=== PATIENT | female | born 1945 | race Caucasian/White ===

== ENCOUNTER → 2019-01-30 13:07 | Outpatient (CLI) | payer MEDICARE, OTHER, SELFPAY ==
[2019-01-07 13:39] VITALS: BMI 29.4
--- NOTE | 2019-01-30 13:09 | ECHOD_ITS ---
Reason For Study: CAD/ASHD Procedure This was a 2D Doppler, Color Flow transthoracic echocardiogram. Exam performed in department. Left Ventricle Normal size and thickness. The estimated ejection fraction is 75 %. Stage 1 diastolic dysfunction. No regional wall motion abnormalities noted. Right Ventricle Normal size and thickness. Normal systolic function. Atria Normal left atrium. Normal right atrium. Normal atrial septum. Mitral Valve The mitral valve is structurally normal. No prolapse or stenosis seen. Trivial mitral valve insufficiency. Tricuspid Valve Normal tricuspid valve. Mild (1+) tricuspid valve insufficiency. Right ventricular systolic pressure estimated to be 33 mmHg. Aortic Valve Trisinus/trileaflet aortic valve. Pulmonic Valve Normal pulmonic valve. Great Vessels Normal aortic root. Normal arch. Moderate atherosclerosis of the aortic arch. Normal inferior vena cava. Inferior vena cava collapse with sniff. Pericardium/Pleural No pericardial effusion. MMode/2D Measurements & Calculations LVIDd: 3.9 cm IVSd: 1.1 cm Ao root diam: 2.4 cm LVIDs: 2.4 cm LVPWd: 0.90 cm RVDd: 3.3 cm FS: 38.4 % LAV(MOD-bp): 41.4 ml LVAd ap4: 20.6 cm2 SV(MOD-sp4): 35.2 ml LAV(MOD-bp) Indexed: 22.3 ml/m2 EDV(MOD-sp4): 48.6 ml LAV(MOD-sp2): 45.5 ml EDV(sp4-el): 51.3 ml LAV(MOD-sp4): 34.8 ml LVAs ap4: 9.3 cm2 ESV(MOD-sp4): 13.4 ml ESV(sp4-el): 13.6 ml EF(MOD-sp4): 72.4 % EF(sp4-el): 73.5 % SV(sp4-el): 37.7 ml LA A4 area: 14.8 cm2 LA dimension(2D): 4.1 cm RA A4 area: 10.2 cm2 Doppler Measurements & Calculations MV E max ricky: 69.0 cm/sec Lat Peak E' Ricky: 6.8 cm/sec Med Peak E' Ricky: 5.5 cm/sec MV A max ricky: 76.6 cm/sec E/E' lat: 10.1 E/E' med: 12.6 MV E/A: 0.90 Ao V2 max: 128.6 cm/sec LV V1 max: 114.7 cm/sec PA V2 max: 82.8 cm/sec Ao max P.6 mmHg LV V1 max P.3 mmHg Ao V2 mean: 94.3 cm/sec Ao mean P.9 mmHg Ao V2 VTI: 31.4 cm TR max ricky: 265.3 cm/sec TR max P.2 mmHg Interpretation Summary The estimated ejection fraction is 75 %. Stage 1 diastolic dysfunction. Trivial mitral valve insufficiency. Mild (1+) tricuspid valve insufficiency. Right ventricular systolic pressure estimated to be 33 mmHg. Moderate atherosclerosis of the aortic arch. There is no comparison study available. Ordering Physician: Zaire Ramírez Referring Physician: Pancho Garcia Performed By: Valarie Aviles, ARNOLD, RVT
== END ==
PROVIDERS: Family Provider Preventive Medicine Occupational Medicine; PCP Preventive Medicine Occupational Medicine; Referring Provider Internal Medicine Cardiovascular Disease; Visit Provider Internal Medicine Cardiovascular Disease
DX: I25.10 Atherosclerotic heart disease of native coronary artery without angina pectoris (principal)
CPT/HCPCS: 93306

== ENCOUNTER → 2019-02-03 09:31 | Outpatient (CLI) | payer MEDICARE, OTHER, SELFPAY ==
[2019-01-07 13:39] VITALS: BMI 29.4
--- NOTE | 2019-02-03 09:33 | STE_ITS ---
Reason For Study: PRE-OP, CAD Stress Results Protocol: Stress Echocardiogram Maximum Predicted HR: 145 bpm Target HR: 123 bpm % Maximum Predicted HR: 98 % DurationHeart Rate Stage (mm:ss) (bpm) BP Comment BASELINE 58 120/80 JACIEL PROTOCOL- STAGE 1 3:00 110 128/74 JACIEL PROTOCOL- STAGE 2 2:08 142 130/82SOB, NO CP RECOVERY 64 128/78 Stress Duration: 5:08 mm:ss Maximum Stress HR: 142 bpm Baseline Echocardiogram Findings The estimated ejection fraction is 65 %. Stress Echo Wall motion Data Resting WM Intermediate WM Stress WM Resting Wall Motion Wall Motion Stress No regional wall motion No regional wall motion abnormalities noted. abnormalities noted. EKG Data The baseline ECG displays normal sinus rhythm. The patient exercised according to the regular Jaciel protocol for a total duration of 5:08. The maximum heart rate attained was 142 beats per minute. This was 97% of maximum predicted heart rate. The patient exercised into stage 2 of the Jaciel protocol. At peak exercise, upsloping ST changes only were noted, which did not meet the criteria for ischemia. No clinical angina was noted. Interpretation Summary The estimated ejection fraction is 65 %. Normal, adequate, treadmill echocardiogram. Negative for ischemia by EKG and echocardiographic anterior. No anginal symptoms noted. Rare PVC noted. Appropriate blood pressure response to exercise. Below average exercise capacity for age. Test was terminated due to achieving target heart rate and dyspnea. Final LVEF is 75%. No complications. Ordering Physician: Zaire Ramírez MD Referring Physician: Zaire Ramírez Performed By: Sierra Paez RDCS
== END ==
PROVIDERS: Family Provider Preventive Medicine Occupational Medicine; PCP Preventive Medicine Occupational Medicine; Referring Provider Internal Medicine Cardiovascular Disease; Visit Provider Internal Medicine Cardiovascular Disease
DX: I25.10 Atherosclerotic heart disease of native coronary artery without angina pectoris (principal); E78.5 Hyperlipidemia, unspecified; Z95.5 Presence of coronary angioplasty implant and graft
CPT/HCPCS: 93017; 93350

== ENCOUNTER → 2019-02-20 11:21 | Outpatient (CLI) | payer MEDICARE, OTHER, SELFPAY ==
[2019-01-07 13:39] VITALS: BMI 29.4
[2019-02-20 12:07] LABS: AST(SGOT) 28 U/L (15-37); Alanine Aminotransfer ALT/SGPT 27 U/L (13-56); Albumin, Serum 3.8 g/dL (3.2-5.0); Alkaline Phosphatase 80 U/L (45-117); Cholesterol 214 mg/dL (200); Globulin 3.7 g/dL (2.2-4.2); High Density Lipoprotein 64 mg/dL; Protein, Total 7.5 g/dL (6.4-8.2); Triglycerides 74 mg/dL; Very Low Density Lipoprotein 15 mg/dL (5-40)
== END ==
PROVIDERS: Family Provider Preventive Medicine Occupational Medicine; PCP Preventive Medicine Occupational Medicine; Referring Provider Internal Medicine Cardiovascular Disease; Visit Provider Internal Medicine Cardiovascular Disease
DX: E78.5 Hyperlipidemia, unspecified (principal); I25.10 Atherosclerotic heart disease of native coronary artery without angina pectoris; Z95.5 Presence of coronary angioplasty implant and graft
CPT/HCPCS: 36415; 80061; 80076

== ENCOUNTER → 2019-07-23 11:21 | Outpatient (CLI) | payer MEDICARE, OTHER, SELFPAY ==
[2019-01-07 13:39] VITALS: BMI 29.4
[2019-07-23 13:13] LABS: AST(SGOT) 25 U/L (15-37); Alanine Aminotransfer ALT/SGPT 22 U/L (13-56); Albumin, Serum 3.7 g/dL (3.2-5.0); Alkaline Phosphatase 73 U/L (45-117); Bilirubin, Direct 0.15 mg/dL (0.00-0.30); Cholesterol 245 mg/dL (200); Globulin 3.5 g/dL (2.2-4.2); High Density Lipoprotein 62 mg/dL; Protein, Total 7.2 g/dL (6.4-8.2); Triglycerides 88 mg/dL; Very Low Density Lipoprotein 18 mg/dL (5-40)
== END ==
PROVIDERS: Family Provider Preventive Medicine Occupational Medicine; PCP Preventive Medicine Occupational Medicine; Referring Provider Nurse Practitioner Family; Visit Provider Nurse Practitioner Family
DX: E78.5 Hyperlipidemia, unspecified (principal)
CPT/HCPCS: 36415; 80061; 80076

== ENCOUNTER → 2019-09-09 | Outpatient (CLI) | payer MEDICARE, OTHER, SELFPAY ==
[2019-08-11 12:58] VITALS: BMI 28.6
[2019-09-09 13:33] LABS: AST(SGOT) 22 U/L (15-37); Alanine Aminotransfer ALT/SGPT 28 U/L (13-56); Albumin, Serum 3.5 g/dL (3.2-5.0); Alkaline Phosphatase 57 U/L (45-117); Bilirubin, Direct 0.15 mg/dL (0.00-0.30); Cholesterol 179 mg/dL (200); Globulin 3.2 g/dL (2.2-4.2); High Density Lipoprotein 55 mg/dL; Protein, Total 6.7 g/dL (6.4-8.2); Triglycerides 101 mg/dL; Very Low Density Lipoprotein 20 mg/dL (5-40)
== END | disposition home or self-care (01) ==
LOC: LAB 10:36
PROVIDERS: PCP Preventive Medicine Occupational Medicine; Referring Provider Nurse Practitioner Family; Visit Provider Nurse Practitioner Family
DX: E78.5 Hyperlipidemia, unspecified (principal)
CPT/HCPCS: 36415; 80061; 80076

== ENCOUNTER → 2020-02-17 | Outpatient (CLI) | payer MEDICARE, OTHER, SELFPAY ==
[2019-08-11 12:58] VITALS: BMI 28.6
[2020-02-17 11:00] LABS: AST(SGOT) 20 U/L (15-37); Alanine Aminotransfer ALT/SGPT 22 U/L (13-56); Albumin, Serum 3.5 g/dL (3.2-5.0); Alkaline Phosphatase 67 U/L (45-117); Cholesterol 184 mg/dL (200); Globulin 3.6 g/dL (2.2-4.2); High Density Lipoprotein 45 mg/dL; Protein, Total 7.1 g/dL (6.4-8.2); Triglycerides 154 mg/dL; Very Low Density Lipoprotein 31 mg/dL (5-40)
== END | disposition home or self-care (01) ==
PROVIDERS: PCP Preventive Medicine Occupational Medicine; Referring Provider Nurse Practitioner Family; Visit Provider Nurse Practitioner Family
DX: E78.00 Pure hypercholesterolemia, unspecified (principal); E78.5 Hyperlipidemia, unspecified
CPT/HCPCS: 36415; 80061; 80076

== ENCOUNTER → 2020-08-30 08:49 | Outpatient (CLI) | payer MEDICARE, OTHER, SELFPAY ==
[2020-02-23 10:40] VITALS: BMI 27.9
[2020-08-30 10:21] LABS: AST(SGOT) 21 U/L (15-37); Alanine Aminotransfer ALT/SGPT 20 U/L (13-56); Albumin, Serum 3.6 g/dL (3.2-5.0); Alkaline Phosphatase 65 U/L (45-117); Bilirubin, Direct 0.07 mg/dL (0.00-0.30); Cholesterol 216 mg/dL (200); Globulin 3.6 g/dL (2.2-4.2); High Density Lipoprotein 48 mg/dL; Protein, Total 7.2 g/dL (6.4-8.2); Triglycerides 164 mg/dL; Very Low Density Lipoprotein 33 mg/dL (5-40)
[2020-08-30 10:42] LABS: Thyroid Stim Hormone (TSH) 3.07 uIU/mL (0.358-3.74)
== END ==
PROVIDERS: PCP Preventive Medicine Occupational Medicine; Referring Provider Nurse Practitioner Family; Visit Provider Nurse Practitioner Family
DX: E78.00 Pure hypercholesterolemia, unspecified (principal); E78.5 Hyperlipidemia, unspecified; E03.9 Hypothyroidism, unspecified
CPT/HCPCS: 36415; 80061; 80076; 84443

== ENCOUNTER 2020-10-04 06:25 | Outpatient (RCR) | payer MEDICARE, OTHER, SELFPAY ==
[2020-09-01 13:08] VITALS: BMI 27.8
== END 2020-10-04 23:59 ==
LOC: IMMUN 06:25
PROVIDERS: PCP Preventive Medicine Occupational Medicine; Referring Provider Family Medicine; Visit Provider Family Medicine
DX: Z23 Encounter for immunization (principal)
CPT/HCPCS: 0011A; 0012A

== ENCOUNTER → 2021-02-28 14:11 | Outpatient (CLI) | payer MEDICARE, OTHER, SELFPAY ==
[2021-02-28 13:28] VITALS: BMI 27.8
[2021-02-28 15:36] LABS: T4 Free Direct 0.99 ng/dL (0.76-1.46); Thyroid Stim Hormone (TSH) 0.83 uIU/mL (0.358-3.74)
== END ==
PROVIDERS: PCP Preventive Medicine Occupational Medicine; Referring Provider Internal Medicine Endocrinology, Diabetes & Metabolism; Visit Provider Internal Medicine Endocrinology, Diabetes & Metabolism
DX: E03.9 Hypothyroidism, unspecified (principal)
CPT/HCPCS: 36415; 84439; 84443

== ENCOUNTER → 2021-03-14 09:23 | Outpatient (CLI) | payer MEDICARE, OTHER, SELFPAY ==
[2021-02-28 13:28] VITALS: BMI 27.8
[2021-03-14 12:19] LABS: AST(SGOT) 25 U/L (15-37); Alanine Aminotransfer ALT/SGPT 31 U/L (13-56); Albumin, Serum 3.5 g/dL (3.2-5.0); Alkaline Phosphatase 55 U/L (45-117); Cholesterol 144 mg/dL (200); Globulin 3.3 g/dL (2.2-4.2); High Density Lipoprotein 52 mg/dL; Protein, Total 6.8 g/dL (6.4-8.2); Triglycerides 102 mg/dL; Very Low Density Lipoprotein 20 mg/dL (5-40)
== END ==
PROVIDERS: PCP Preventive Medicine Occupational Medicine; Referring Provider Nurse Practitioner Family; Visit Provider Nurse Practitioner Family
DX: E78.00 Pure hypercholesterolemia, unspecified (principal); E78.5 Hyperlipidemia, unspecified
CPT/HCPCS: 36415; 80061; 80076

== ENCOUNTER → 2021-05-20 09:54 | Outpatient (CLI) | payer MEDICARE, OTHER, SELFPAY | PROVIDERS: PCP Preventive Medicine Occupational Medicine; Referring Provider Otolaryngology Otolaryngology/Facial Plastic Surgery; Visit Provider Otolaryngology Otolaryngology/Facial Plastic Surgery | DX: U07.1 COVID-19 (principal) | CPT/HCPCS: 87635; C9803; U0005; U0003 ==

== ENCOUNTER → 2021-06-13 16:20 | Outpatient (CLI) | payer MEDICARE, OTHER, SELFPAY ==
--- NOTE | 2021-06-13 16:25 | RAD_ITS ---
STUDY: X-RAY CHEST REASON FOR EXAM: Female, 75 years old. Chest heaviness TECHNIQUE: PA and lateral views of the chest. COMPARISON: None. FINDINGS: Focal opacity in the upper right lung consistent with right upper lobe pneumonia, atelectasis, or mass. Correlation prior chest x-rays or chest CT is recommended for further evaluation. There is no demonstrated pleural abnormality. Normal size heart. Normal mediastinum and ari. Normal visualized pulmonary arteries. Normal visualized aortic arch and descending thoracic aorta. There is a levoscoliosis of the thoracic spine. Normal visualized ribs, clavicles, and shoulders. There is no demonstrated abnormality of the visualized soft tissue structures of the upper abdomen. RAD/Chest PA and Lateral IMPRESSION: Right upper lobe pneumonia, atelectasis, or mass. Clinical correlation and CT would be useful. Electronically Signed: Slava Mckeon MD at 8:14 EST Tel , Service support ,
[2021-06-13 17:09] LABS: Absolute Lymphocyte Count 2.69 X10^3/uL (0.83-4.51); Absolute Neutrophil Count 3.1 X10^3/uL (2.0-7.7); Basophil# 0.06 X10^3/uL; Basophil% 0.9 % (0-1); Eosinophil# 0.23 X10^3/uL; Eosinophils% 3.4 % (0-5); Hematocrit 40.8 % (37-47); Lymphocyte # 2.69 X10^3/ul (0.83-4.51); Lymphocyte % 39.3 % (19-41); Mean Corp Hgb Conc 31.9 g/dL (32-36); Mean Corpuscular Hgb 29.5 pg (27.0-32.0); Mean Corpuscular Volume 92.5 fL (81-99); Mean Platelet Vol. 12.7 fl (6.2-12.0); Monocyte# 0.73 X10^3/uL; Monocyte% 10.7 % (0-10); NRBC Flagged by Analyzer 0 % (0-5); Neutrophil # 3.13 X10^3/uL (2.7-7.7); Neutrophil % 45.6 % (47-70); Platelet Count 257 K/mm3 (150-450); RBC Distribution Width CV 13.5 % (11.6-14.6); Red Blood Count 4.41 M/mm3 (4.2-5.4); White Blood Count 6.9 K/mm3 (4.4-11.0)
[2021-06-13 17:26] LABS: Anion Gap 4 (5-15); BUN 12 mg/dL (7-18); Calcium,Total 9.3 mg/dL (8.5-10.1); Chloride 104 mmol/L (98-107); Creatinine, Serum 1.09 mg/dL (0.55-1.02); EST Glomerular Filtration Rate 52 mL/min (>60); Est Glom Filt Rate - Afr Amer 63 mL/min (>60); Glucose 97 mg/dL (74-106); Potassium 3.7 mmol/L (3.5-5.1); Sodium Level 139 mmol/L (136-145)
== END ==
PROVIDERS: PCP Preventive Medicine Occupational Medicine; Referring Provider Nurse Practitioner Gerontology; Visit Provider Nurse Practitioner Gerontology
DX: R07.89 Other chest pain (principal); R42 Dizziness and giddiness; R53.82 Chronic fatigue, unspecified
CPT/HCPCS: 36415; 71046; 80048; 85025

== ENCOUNTER → 2021-06-27 06:38 | Outpatient (CLI) | payer MEDICARE, OTHER, SELFPAY ==
--- NOTE | 2021-06-27 06:40 | CT_ITS ---
STUDY: CT CHEST WITH CONTRAST REASON FOR EXAM: Female, 75 years old. Abnormal chest x ray -- right upper lobe pneumonia, atelectasis, or mass RADIATION DOSAGE (If Supplied By Facility): CTDIvol = ( 11.52 ) mGy, DLP = ( 340.35 ) mGycm TECHNIQUE: Transaxial imaging was performed following intravenous administration of IV 100mL Isovue-300. Multiplanar coronal and sagittal images were reformatted. Individualized dose optimization techniques were used for this CT. COMPARISON: Chest x-ray 06/13/2021 FINDINGS: Lungs are hyperexpanded with centrilobular emphysema predominantly involving the upper lung zones. A large irregular area of peribronchial groundglass opacity involves the right upper lobe, measuring 3.4 x 4.4 cm, correlating abnormality on previous x-ray. Solid nodular component along the inferior posterior margin measures 6 x 9 mm on image 46 of series 4 Normal heart and pericardium. There are calcifications of the coronary arteries. Normal mediastinum. Normal hilar regions. Normal enhanced pulmonary arteries. There is atherosclerotic calcification of the aortic arch with tortuosity and elongation of the aortic arch and descending thoracic aorta. There are multi-level degenerative changes of the thoracic spine. There is no demonstrated abnormality of the visualized upper abdomen. CT/Chest WITH Contrast IMPRESSION: Solid (9 mm) and groundglass (dominant) opacity (44 mm) nodule in the the right upper lobe. Fleischner Society Guidelines (MacMahon, et al. Radiology 2017; 284(1):228-43) recommend PET/CT, biopsy or resection. Electronically Signed: Randy Robles MD ([place]) at 16:37 EST , Service support ,
== END ==
PROVIDERS: PCP Preventive Medicine Occupational Medicine; Referring Provider Nurse Practitioner Gerontology; Visit Provider Nurse Practitioner Gerontology
DX: R93.89 Abnormal findings on diagnostic imaging of other specified body structures (principal)
CPT/HCPCS: 71260; Q9967

== ENCOUNTER → 2021-07-05 11:04 | Outpatient (CLI) | payer MEDICARE, OTHER, SELFPAY ==
--- NOTE | 2021-07-05 11:06 | ECHOD_ITS ---
Reason For Study: DYSPNEA Procedure This was a 2D Doppler, Color Flow transthoracic echocardiogram. The exam was of adequate technical quality. Exam performed in department. Left Ventricle Normal LV size. Left ventricular systolic function is normal. The estimated ejection fraction is 65 %. No regional wall motion abnormalities noted. Right Ventricle Normal RV size. Normal systolic function. Atria The left atrium is mildly enlarged. Normal right atrium. No doppler evidence for ASD. Mitral Valve There is no mitral annular calcification. Normal mitral valve. Mild-Moderate (1-2+) mitral valve insufficiency. Tricuspid Valve Normal tricuspid valve. Mild to moderate (1-2+) tricuspid valve insufficiency. Right ventricular systolic pressure estimated to be 35 mmHg. Aortic Valve Trisinus/trileaflet aortic valve. Mild (1+) aortic valve insufficiency. Pulmonic Valve The pulmonic valve is not well visualized. Trivial pulmonic valve insufficiency identified. Great Vessels Normal sized aortic root. Pericardium/Pleural No pericardial effusion. MMode/2D Measurements & Calculations LVIDd: 3.9 cm IVSd: 0.95 cm Ao root diam: 2.5 cm LVIDs: 2.5 cm LVPWd: 0.91 cm RVDd: 4.0 cm FS: 36.7 % LAV(MOD-bp): 48.7 ml LVAd ap4: 21.3 cm2 LVAd ap2: 20.1 cm2 LAV(MOD-bp) Indexed: 26.4 ml/m2 LVLd ap4: 7.0 cm LVLd ap2: 6.8 cm LAV(MOD-sp2): 48.0 ml EDV(MOD-sp4): 52.5 ml EDV(MOD-sp2): 50.3 ml LAV(MOD-sp4): 47.3 ml EDV(sp4-el): 55.0 ml EDV(sp2-el): 50.4 ml LVAs ap4: 11.3 cm2 LVAs ap2: 11.7 cm2 LVLs ap4: 5.8 cm LVLs ap2: 6.0 cm ESV(MOD-sp4): 18.8 ml ESV(MOD-sp2): 20.2 ml ESV(sp4-el): 18.7 ml ESV(sp2-el): 19.6 ml EF(MOD-sp4): 64.3 % EF(MOD-sp2): 59.8 % EF(sp4-el): 65.9 % SV(MOD-sp4): 33.7 ml SV(MOD-sp2): 30.1 ml SV(sp4-el): 36.2 ml LA dimension(2D): 4.2 cm LA A4 area: 18.6 cm2 RA A4 area: 14.3 cm2 Doppler Measurements & Calculations MV E max ricky: 107.9 cm/sec Lat Peak E' Ricky: 6.8 cm/sec Med Peak E' Ricky: 6.4 cm/sec MV A max ricky: 26.0 cm/sec E/E' lat: 15.8 E/E' med: 16.9 MV E/A: 4.2 Ao V2 max: 111.1 cm/sec AI max ricky: 363.1 cm/sec LV V1 max: 91.8 cm/sec Ao max P.9 mmHg AI max P.8 mmHg LV V1 max P.4 mmHg Ao V2 mean: 75.8 cm/sec AI dec slope: 129.6 cm/sec2 LV V1 mean P.0 mmHg Ao mean P.5 mmHg AI P1/2t: 820.6 msec LV V1 mean: 67.6 cm/sec Ao V2 VTI: 29.5 cm LV V1 VTI: 25.3 cm PA V2 max: 66.3 cm/sec TR max ricky: 275.0 cm/sec TR max P.8 mmHg ECHO/Echo Complete Interpretation Summary Left ventricular systolic function is normal. The estimated ejection fraction is 65 %. The left atrium is mildly enlarged. Mild-Moderate (1-2+) mitral valve insufficiency. Mild to moderate (1-2+) tricuspid valve insufficiency. Mild (1+) aortic valve insufficiency. Trivial pulmonic valve insufficiency identified. Right ventricular systolic pressure estimated to be 35 mmHg. Transmitral diastolic flow velocities suggest diastolic dysfunction (pseudonorm al pattern). Ordering Physician: Conchita Bermudez Referring Physician: YELENA MAHONEY Performed By: Thu Goff, ARNOLD, RVT
== END ==
PROVIDERS: PCP Preventive Medicine Occupational Medicine; Referring Provider Nurse Practitioner Gerontology; Visit Provider Nurse Practitioner Gerontology
DX: I34.1 Nonrheumatic mitral (valve) prolapse (principal); R06.00 Dyspnea, unspecified
CPT/HCPCS: 93306

== ENCOUNTER → 2021-07-12 06:58 | Outpatient (CLI) | payer MEDICARE, OTHER, SELFPAY ==
--- NOTE | 2021-07-12 13:45 | PFTCOMP_ITS ---
COMPLETE PULMONARY FUNCTION TEST INTERPRETATION Brief HPI: Patient is a 75 year old female, currently under the care of myself, who presents to [facility] for complete pulmonary function tests secondary to diagnosis of dyspnea. Respiratory therapist reports good effort and reproducible results. Interpretation: Forced expiration spirometry shows a mild large airways obstructive ventilatory defect with an FEV1 of 81% predicted. There is a significant bronchodilator response in FVC by strict ATS criteria. Spirograms are of good quality and plateau slowly, indicating slowly emptying areas of the lungs. The respiratory flow volume loop shows decreased expiratory flow rates at all lung volumes consistent with airway obstruction. Lung volumes by body plethysmography show a normal total lung capacity at 4.43 L, 89% predicted. All other lung volumes are within normal limits. Diffusion capacity by carbon monoxide is decreased at 48% predicted. The airway resistance is elevated. No previous pulmonary function tests were available for review. Impression: Partial reversible mild large airways obstructive ventilatory defect with a disproportionate reduction in diffusing capacity
== END ==
PROVIDERS: PCP Preventive Medicine Occupational Medicine; Referring Provider Internal Medicine Critical Care Medicine; Visit Provider Internal Medicine Critical Care Medicine
DX: R06.00 Dyspnea, unspecified (principal); R93.89 Abnormal findings on diagnostic imaging of other specified body structures
CPT/HCPCS: 94060; 94726; 94729

== ENCOUNTER → 2021-07-14 13:41 | Outpatient (CLI) | payer MEDICARE, OTHER, SELFPAY ==
[2021-07-14 13:45] VITALS: PULSE 74; PULSE 82; PULSE 83; PULSE 88; PULSE 91; O2SAT 95; O2SAT 96
--- NOTE | 2021-07-14 15:07 | PCM.PSN.6M ---
PSN 6 Minute Walk Test 6 Minute Walk Test 6 Minute Walk Test: 6 Minute Walk Test PSN:6-Minute Walk Test Start: 07/14/21 13:59 Freq: Status: Active Protocol: RESP.6MINW Document 07/14/21 13:45 EW (Rec: 07/14/21 14:05 EW [id number]) 6 Minute Walk Test Date Performed 07/14/21 Time Performed 13:45 Height 5 ft 6 in Weight: 77.111 kg Weight in Pounds 170.[address]: Ez Braun Pre-test Oxygen Delivery Method Room Air Pulse Ox (%) 95 Pulse Rate (60-100 beats/min) 74 Dyspnea Ann Scale (0-10) 1 Exertion Ann Scale (6-20) 0 1st minute Oxygen Delivery Method Room Air Pulse Ox (%) 96 Pulse Rate (60-100 beats/min) 82 2nd minute Oxygen Delivery Method Room Air Pulse Ox (%) 95 Pulse Rate (60-100 beats/min) 88 3rd minute Oxygen Delivery Method Room Air Pulse Ox (%) 95 Pulse Rate (60-100 beats/min) 91 4th minute Oxygen Delivery Method Room Air Pulse Ox (%) 95 Pulse Rate (60-100 beats/min) 88 5th minute Pulse Ox (%) 96 Pulse Rate (60-100 beats/min) 88 6th minute Pulse Ox (%) 96 Pulse Rate (60-100 beats/min) 88 Post-test Oxygen Delivery Method Room Air Pulse Ox (%) 95 Pulse Rate (60-100 beats/min) 83 Dyspnea Ann Scale (0-10) 2 Exertion Ann Scale (6-20) 8 Full Laps Walked 17 Partial Lap, Number of Tiles Walked 0 Total Distance Walked (ft) 1003 Interpretation Interpretation: The patient was able to ambulate 1003 feet over the course of 6 minutes on room air with the assistance of a cane and no breaks. The patient experienced no significant desaturation or tachycardia during testing. These findings are consistent with a musculoskeletal limitation in exercise tolerance. Recommendations Recommendations: No supplemental oxygen is indicated at this time.
== END ==
PROVIDERS: PCP Preventive Medicine Occupational Medicine; Referring Provider Internal Medicine Critical Care Medicine; Visit Provider Internal Medicine Critical Care Medicine
DX: R06.00 Dyspnea, unspecified (principal); R93.89 Abnormal findings on diagnostic imaging of other specified body structures
CPT/HCPCS: 94618

== ENCOUNTER 2021-09-14 13:45 | Outpatient (CLI) | payer MEDICARE, OTHER, SELFPAY ==
--- NOTE | 2021-09-14 13:50 | CT_ITS ---
STUDY: CT CHEST WITHOUT CONTRAST REASON FOR EXAM: Female, 75 years old. RUL GGO. History of prior Covid. RADIATION DOSAGE (If Supplied By Facility): CTDIvol = ( 8.13 ) mGy, DLP = ( 285.00 ) mGycm TECHNIQUE: Transaxial imaging was performed without the administration of intravenous contrast material. Individualized dose optimization techniques were used for this CT. COMPARISON: Comparison is made with prior study dated 06/27/2021. FINDINGS: There are emphysematous changes of the lungs with emphysematous blebs. Hyperinflation. Once again, there is a narrowing of the peribronchial groundglass opacity in the right upper lobe. This is unchanged. Stable 5 mm nodule along its peripheral posterior aspect. There is no demonstrated pleural abnormality. There are calcifications of the coronary arteries. There are multiple small lymph nodes within the mediastinum, which are normal in size and morphology most compatible with reactive lymph hyperplasia. Normal hilar regions. Normal unenhanced pulmonary arteries. There is atherosclerotic calcification of the aortic arch with tortuosity and elongation of the aortic arch and descending thoracic aorta. There are multi-level degenerative changes of the thoracic spine. Small gallstones are seen along the deep ended portion of the gallbladder lumen. CT/Chest without Contrast IMPRESSION: Stable focal area of groundglass appearance in the posterior aspect of the right upper lobe with persistent tiny nodular density along its inferior margin. Electronically Signed: Horacio Limon MD at 15:14 EST ,
== END 2021-09-14 23:59 | disposition home or self-care (01) ==
LOC: CT 13:49
PROVIDERS: PCP Preventive Medicine Occupational Medicine; Referring Provider Internal Medicine Critical Care Medicine; Visit Provider Internal Medicine Critical Care Medicine
DX: R93.89 Abnormal findings on diagnostic imaging of other specified body structures (principal)
CPT/HCPCS: 71250

== ENCOUNTER 2021-09-29 11:30 | Outpatient (CLI) | payer MEDICARE, OTHER, SELFPAY ==
[2021-09-29 13:50] LABS: AST(SGOT) 21 U/L (15-37); Alanine Aminotransfer ALT/SGPT 21 U/L (13-56); Albumin, Serum 3.7 g/dL (3.2-5.0); Alkaline Phosphatase 61 U/L (45-117); Bilirubin, Direct 0.11 mg/dL (0.00-0.30); Cholesterol 166 mg/dL (200); Globulin 3.5 g/dL (2.2-4.2); High Density Lipoprotein 57 mg/dL; Protein, Total 7.2 g/dL (6.4-8.2); Triglycerides 125 mg/dL; Very Low Density Lipoprotein 25 mg/dL (5-40)
[2021-09-29 13:56] LABS: T4 Free Direct 1.06 ng/dL (0.76-1.46); Thyroid Stim Hormone (TSH) 1.28 uIU/mL (0.358-3.74)
== END 2021-09-29 23:59 | disposition home or self-care (01) ==
LOC: LAB 11:32
PROVIDERS: Nurse Practitioner Family; PCP Preventive Medicine Occupational Medicine; Visit Provider Nurse Practitioner Gerontology
DX: E78.5 Hyperlipidemia, unspecified (principal); E03.9 Hypothyroidism, unspecified
CPT/HCPCS: 36415; 80061; 80076; 84439; 84443

== ENCOUNTER 2021-10-31 20:00 | Outpatient (CLI) | payer MEDICARE, OTHER, SELFPAY | END 2021-10-31 23:59 | disposition home or self-care (01) | PROVIDERS: PCP Preventive Medicine Occupational Medicine; Visit Provider Internal Medicine Critical Care Medicine | DX: G47.33 Obstructive sleep apnea (adult) (pediatric) (principal) | CPT/HCPCS: 95811 ==

== ENCOUNTER → 2022-02-11 | Outpatient (CLI) | payer MEDICARE, OTHER, SELFPAY ==
--- NOTE | 2022-02-11 08:45 | CT_ITS ---
STUDY: CT Chest W/O Contrast Injection 02/11/2022 7:11 PM REASON FOR EXAM: Female, 76 years old. 6 month f/u GGO groundglass opacity Individualized dose optimization techniques were used for this CT. TECHNIQUE: Transaxial imaging was performed withoutIV contrast material. COMPARISON: Sep 14 2021 1:55pm . FINDINGS: There are degenerative changes of the shoulders. There is no pneumothorax. There is no demonstrated pleural abnormality. There are scattered blebs and bullae. This can be seen in pulmonary emphysema. Right upper lobe groundglass opacity measures 49 x 33 mm. Series 2 image 40. Stable 15 x 5 mm nodule inferior to the ground glass region. There are calcifications of the coronary arteries. Normal mediastinum. Normal hilar regions. Normal pulmonary arteries. There is atherosclerotic calcification of the aortic arch with tortuosity and elongation of the aortic arch and descending thoracic aorta. There are multi-level degenerative changes of the thoracic spine. There are no acute findings of the upper abdomen. CT/Chest without Contrast IMPRESSION: Right upper lobe nodule and groundglass area is stable. ACR Lung CT Screening Reporting T Data System (Lung-RADS) score: 2 - Benign Appearance or Behavior. Recommend continued annual screening with low-dose CT (LDCT) in 12 months. Electronically Signed: Monty Amaro MD at 19:15 EDT ,
== END | disposition home or self-care (01) ==
PROVIDERS: PCP Preventive Medicine Occupational Medicine; Referring Provider Internal Medicine Critical Care Medicine; Visit Provider Internal Medicine Critical Care Medicine
DX: I25.10 Atherosclerotic heart disease of native coronary artery without angina pectoris (principal); I70.0 Atherosclerosis of aorta; M19.011 Primary osteoarthritis, right shoulder; R91.1 Solitary pulmonary nodule; M19.012 Primary osteoarthritis, left shoulder; R93.89 Abnormal findings on diagnostic imaging of other specified body structures
CPT/HCPCS: 71250

== ENCOUNTER → 2022-06-26 | Outpatient (CLI) | payer MEDICARE, OTHER, SELFPAY ==
[2022-06-26 12:37] LABS: AST(SGOT) 18 U/L (15-37); Alanine Aminotransfer ALT/SGPT 24 U/L (13-56); Albumin, Serum 3.6 g/dL (3.2-5.0); Alkaline Phosphatase 70 U/L (45-117); Anion Gap 7 (5-15); BUN 20 mg/dL (7-18); BUN/Creat Ratio 18.9 RATIO (10-20); Bilirubin, Direct 0.13 mg/dL (0.00-0.30); Calcium,Total 8.7 mg/dL (8.5-10.1); Chloride 104 mmol/L (98-107); Cholesterol 170 mg/dL (200); Creatinine, Serum 1.06 mg/dL (0.55-1.02); EST Glomerular Filtration Rate 53 mL/min (>60); Est Glom Filt Rate - Afr Amer 64 mL/min (>60); Globulin 3.2 g/dL (2.2-4.2); Glucose 100 mg/dL (74-106); High Density Lipoprotein 59 mg/dL; Potassium 3.8 mmol/L (3.5-5.1); Protein, Total 6.8 g/dL (6.4-8.2); Sodium Level 138 mmol/L (136-145); Thyroid Stim Hormone (TSH) 1.31 uIU/mL (0.358-3.74); Triglycerides 111 mg/dL; Very Low Density Lipoprotein 22 mg/dL (5-40)
== END | disposition home or self-care (01) ==
LOC: LAB 11:36
PROVIDERS: PCP Preventive Medicine Occupational Medicine; Referring Provider Internal Medicine Cardiovascular Disease; Visit Provider Internal Medicine Cardiovascular Disease
DX: I10 Essential (primary) hypertension (principal); E78.00 Pure hypercholesterolemia, unspecified
CPT/HCPCS: 36415; 80048; 80061; 80076; 84443

== ENCOUNTER 2022-07-10 11:00 | Outpatient (RCR) | payer MEDICARE, OTHER, SELFPAY ==
--- NOTE | 2022-05-24 13:20 | HP.PTEVAL_ITS ---
Patient's Visit Information CINDI HAAS is a 76 year old F referred to Physical Therapy by Dr. Robles Lopez MD with a diagnosis of Right Hip OA. Date of Evaluation: 05/24/22 Physical Therapist: Jade Bettencourt DPT - Visit Plan Frequency: 2x /Week Duration: 4 Weeks Plan: Aquatic PT- focus on LE and core strength/stabilization - Subjective Patient reports that she has an issue with her right hip. She has a spur and she had an injection 2 weeks ago- Cortisone. She is able to do things that she wasn't able to do. She is very happy with the injection but wants to have water therapy to help get stronger. She has had back issues for about 40 years- 2 back surgeries- last one was in 1974- they dissolved the disc. She thinks thats what has continued her problems- all the weight is now on L3. She has been told that her back is a mess- she has gone through injections and ablasions and it might have dulled but it has not been painfree. About a year ago she went to her PCP and they took x-rays and showed OA in the joint- it continued to get worse. She feels that her hip is almost back to 100%. She can stand and put her pajamas on without holding on. No pain since the injection. Prior to the injection the pain was located on the side of the hip- No radiating pain- does have pain that goes to the center of the hip- but she feels that it comes from her back. Described the pain as sharp- No N/T. No loss or change in bowel or bladder. Sleep: not disturbed- back mostly she has a CPAP machine. She is more sedentary- she does her own cooking and cleaning. PMHx: No change since 04/24/22 Construction Mgr visit. - Objective Posture: FH, RS- can correct but does not maintain. Gait: no deviation noted- good arm swing and trunk rotation. Stairs: asc/desc 8 recip with 1 HR. HR/TR: able with UE A. SLS: 3 sec then LOB. ROM: WFL in all planes. Sensation: diminished to gross touch right>left. Strength: Core: fair minus, Hip: 4+/5 throughout, Knee: 5/5, Ankle: 5/5. Flex: HS: mild Gastroc: mild. Sit to Stand: no UE A - Special Tests R Hip BONILLA - Intraarticular Pathology: Negative R Hip FADDIR - Labrum: Positive R Hip Trendelenberg - Glut Medius: Negative R Hip Jeffry - IT Band: Negative - Balance/Special Test Scores Lower Extremity Functional Score: 71 - Goals Goal 1:: Patient will be I with HEP and progression Goal Time Frame: 4-6 Weeks Goal 2:: Patient will maintain proper posture t/o tx session to demo increased core s/s Goal Time Frame: 4-6 Weeks Goal 3:: Patient will report 80% improvement Goal Time Frame: 4-6 Weeks - Rehabilitation Potential Physical Therapy Diagnosis: Patient presents with hypomobility- she has decre ased LE and core strength/stabilization and muscular endurance- leading to increased pain with ADL's. Rehabilitation Potential: Good - Anticipated Interventions Patient/Client Instruction: Educate patient on: Benefits of Fitness Program Therapeutic Exercise to Include: Strength training, Endurance training, Balance training, Coordination, Agility training, Body mechanics, Postural training, Flexibilty training, Gait and locomotor training, Neuromotor development, In an aquatic setting, Dynamic Lumbar Stabilization, Scapular Strength/Stabilization For the Purpose of:: To improve muscle performance and motor function Thank you for the opportunity to evaluate your patient. For Medicare and Medicare HMO plans, please review the plan of care and approve it. It will need to be FAXED BACK to us at [phone] for Medicare purposes. For Medicare only, by signing this I certify the plan of care. Please let me know if there are questions or concerns regarding this plan of care. Physician Signature: ___Date:
--- NOTE | 2022-07-10 11:27 | HP.PTDCSUM ---
It has been my pleasure to treat CINDI HAAS referred by Dr. Robles Lopez MD, with the diagnosis of Right Hip OA for a total of 11 visit(s). Discharge Date: Please see the following information for a summary of their discharge status. Subjective: Patient reports that she is not hurting as much as she was- she is moving around more at home and doing more stuff. If anything the pool therapy has helped her to get rid of water fear. She still has some pain. She would like to be more disciplined and do the exercises at home. She feels confident with the exercise program Lumbar spine Pain Intensity (Out of 10): 1 RLE Pain Intensity (Out of 10): 1 % Improvement: 75 Objective/Function: Posture: Fair. Gait: no deviation noted- good arm swing and trunk rotation. Stairs: asc/desc 8 recip with 1 HR. HR/TR: able with UE A. SLS: 5 sec then LOB. ROM: WFL in all planes. Sensation: diminished to gross touch right>left. Strength: Core: fair minus, Hip: 4+/5 throughout, Knee: 5/5, Ankle: 5/5. Flex: HS: mild Gastroc: mild. Sit to Stand: no UE A. - Special Tests. R Hip BONILLA - Intraarticular Pathology: Negative. R Hip FADDIR - Labrum: Positive. R Hip Trendelenberg - Glut Medius: Negative. R Hip Jeffry - IT Band: Negative Goal 1:: Patient will be I with HEP and progression Goal 2:: Patient will maintain proper posture t/o tx session to demo increased core s/s Goal 3:: Patient will report 80% improvement Plan: 07/10/22: Discharge to I HEP- encouraged to call if questions or concerns. Aquatic PT- focus on LE and core strength/stabilization If there are questions or concerns regarding this patient's physical therapy, please feel free to call me at [phone]. Thank you for the referral of this patient. Sincerely, Jade Bettencourt, DPT Balance/Gait/Functional tests - Balance/Special Test Scores Lower Extremity Functional Score: 54 Tug Test: <10 sec.=free mobile
== END 2022-07-10 12:25 | disposition home or self-care (01) ==
LOC: PT 11:00
PROVIDERS: PCP Preventive Medicine Occupational Medicine; Referring Provider Specialist; Visit Provider Specialist
DX: M16.11 Unilateral primary osteoarthritis, right hip (principal); M70.61 Trochanteric bursitis, right hip
CPT/HCPCS: 97113; 97162; 97164

== ENCOUNTER → 2022-10-31 | Outpatient (CLI) | payer MEDICARE, OTHER, SELFPAY ==
--- NOTE | 2022-10-31 12:56 | CT_ITS ---
ACR Level 3 findings have been noted. An addendum which confirms receipt of the report will follow. EXAM: CT CHEST WITHOUT INTRAVENOUS CONTRAST CLINICAL INDICATION: 49 x 33 mm groundglass nodule and patient also has a stable 15 x 5 mm. TECHNIQUE: Helically acquired images were obtained of the chest without intravenous contrast. This CT exam was performed using one or more of the following dose reduction techniques: automated exposure control, adjustment of the mA and/or kV according to patient size, and/or use of iterative reconstruction technique. This report was created using [employer] report [employer] technology. RADIATION DOSE: CTDIvol = 12.68 mGy, DLP = 456.18 mGy-cm. COMPARISON: 06/27/2021, 09/14/2021, and 02/21/2022. FINDINGS: LUNGS AND PLEURAL SPACES: Over the course of the 4 examinations there appears to be some progressive increased size of the right upper lobe nodule that is inferior to the area of groundglass opacity. On the examination dated 06/27/2021 it measured approximately 1.3 x 0.4 cm. On the examination dated 09/14/2021 and measured approximately 1.4 x 0.5 cm. On the examination dated 02/11/2022 and measure approximately 1.7 x 0.6 cm. On the current examination measures approximately 2.1 x 0.7 cm. There is mild spiculation around this nodule. Emphysema. No pleural effusion or thickening. No pneumothorax. No change in the ill-defined groundglass opacity right upper lobe that measures about 3.8 x 3 cm. HEART: Coronary artery calcifications. Heart size is normal. No pericardial effusion. MEDIASTINUM: Unremarkable. No mediastinal or hilar adenopathy. Esophagus is unremarkable. No hiatal hernia. THYROID: Unremarkable. No thyroid lesions. BONES/JOINTS: Unremarkable. No suspicious lytic or blastic abnormality. VASCULATURE: See above. GALLBLADDER AND BILE DUCTS: Cholelithiasis. CT/Chest without Contrast IMPRESSION: 1. No change in the ill-defined groundglass opacity right upper lobe that measures about 3.8 x 3 cm. 2. Emphysema. 3. Enlarging solid nodule in the right upper lobe adjacent to the area of groundglass opacification. There is some associated spiculation. 4. No change in the area of groundglass opacification in the right upper lobe. 5. Cholelithiasis. 6. Coronary artery disease. RECOMMENDATIONS: Enlarging solid nodule in the right upper lobe adjacent to the area of groundglass opacification with associated spiculation. ACR Lung CT Screening Reporting T Data System (Lung-RADS) score: 4X - Very Suspicious. There are additional features or imaging findings that increase the suspicion of malignancy. Consider PET/CT and/or tissue sampling depending on the probability of malignancy and comorbidities. PET/CT may be used when there is a >=8 mm solid component. Electronically Signed: Camacho Martin MD at 6:40 EDT ,
== END | disposition home or self-care (01) ==
LOC: CT 12:55
PROVIDERS: PCP Preventive Medicine Occupational Medicine; Visit Provider Internal Medicine Critical Care Medicine
DX: R93.89 Abnormal findings on diagnostic imaging of other specified body structures (principal)
CPT/HCPCS: 71250

== ENCOUNTER → 2022-11-14 | Outpatient (CLI) | payer MEDICARE, OTHER, SELFPAY ==
--- NOTE | 2022-11-14 11:30 | PET_ITS ---
EXAMINATION: FDG PET/CT INDICATIONS: 76-year-old female with a history of pulmonary nodularity. COMPARISON EXAMINATION: CT of the chest report dated 10/31/2022. INDEX LESION SIZE SUV INTERPRETATION Right upper lung field, right upper lobe, ground glass density ? 1.3 max Quantitative criteria for viable neoplasm are not fulfilled, sequential radiologic investigation recommended ? Right lower lung field, ground glass density ? 1.3 max Quantitative criteria for viable neoplasm are not fulfilled, interim metabolic assessment recommended Following the intravenous administration of 12.8 mCi of F-18 deoxyglucose via the right antecubital fossa, multiplanar image acquisitions of the head, neck, chest, abdomen and pelvis to the level of the midthigh, obtained at one-hour post radiopharmaceutical administration contemporaneously interpreted with the current CT of the chest dated 11/14/[address] of the chest study dated 10/31/2022 via coregistration reveal: SERUM GLUCOSE LEVEL: 99 mg/dL HEIGHT: 65 inches WEIGHT: 180 pounds FINDINGS: HEAD/NECK: There is no evidence of abnormal increased glucose metabolism in the pharyngeal mucosal space, parapharyngeal space, oropharynx, bilateral-lateral and anterior neck, hypopharynx and distribution of the larynx. The visualized portion of the cerebral cortical-subcortical structures demonstrate symmetric and preserved glucose metabolism. CHEST: Facilitated radiopharmaceutical concentration is noted in the right upper mid lung field, corresponding to a ground glass density defined on CT of the chest dated 10/31/2022. The calculated standard uptake value is 1.3. Quantitative criteria for viable neoplasm are not fulfilled. There is no quantitative scintigraphic evidence of abnormal increased glucose metabolism within the context of the bilateral hemithorax pulmonary parenchyma, right and left hemithorax at the pleural interface, mediastinal structures, and left-right thoracic perihilum. Facilitated radiopharmaceutical concentration noted in the right lower posterior lung zone corresponding to a second ground glass density. The calculated standard uptake value is 1.3. Prominent uptake is noted in the descending thoracic aorta commensurate with activated leukocytes associated with atherosclerotic plaque formation. CT of the chest demonstrates the following anatomic characteristics: Emphysematous changes are noted in the bilateral upper lung zones. Bilateral axillary soft tissue densities reveal no evidence of increased FDG uptake. Atherosclerotic calcification is defined in the thoracic aorta without evidence of dilatation, aneurysm formation. Coronary artery calcification is observed. Mediastinal soft tissue is ametabolic. A small hiatal hernia is defined. ABDOMEN/PELVIS: Normal physiologic distribution of the radiopharmaceutical is identified in the hepatic (4.1) and splenic parenchyma, both renal units, urinary bladder, and visualized intestinal tract. CT of the abdomen and pelvis is remarkable for the following: Atherosclerotic calcification is defined in the abdominal aorta without evidence of dilatation, aneurysm formation. Abdominal and pelvic arterial calcification is observed. A right inguinal hernia with intestinal tract is defined. Occasional colonic diverticula are identified without evidence of diverticulitis. Urinary bladder appears distended. SKELETAL: There is no evidence of quantitatively significant enhanced glucose metabolism on meticulous inspection of the appendicular and axial skeletal structures. Degenerative changes defined in the thoracic and lumbar spine demonstrate no evidence of increased glucose metabolism. There are no sclerotic, mixed sclerotic-lytic, or primarily lytic changes defined in the axial skeletal structures with evidence of increased FDG uptake. A lower lumbar-thoracic scoliosis is defined. PET/PET/CT Tumor Base -Thigh Init IMPRESSION: 1. NEGATIVE EXAMINATION. There is no definitive quantitative scintigraphic evidence of viable neoplasm. 2. Facilitated FDG uptake noted in the right upper and lower lung bravo corresponding to ground glass densities do not fulfill quantitative criteria for viable neoplasm (Velez et al, Journal of Nuclear Medicine, 32:1, 1991). 3. Anatomic-metabolic stability may be ensured in the right upper and lower lung bravo with repeat FDG-PET CT imaging or CT of the chest in 3-6 months if clinically indicated. (Kimberlyn, Seminars in Thoracic and Cardiovascular surgery, 14:292, 2002). Electronic Signature Slava Rodriguez D.O. Accurate Quantification of SUVs for this report are calculated using the exclusive [employer] Technology. (U.S. Patent No. [id number] B2 [phone] [place] patent [phone]). Standardization and correction of the FDG SUV metric via ACCUQUAN technology allow for vendor non-specific objective quantitative examination comparison and optimization of the sensitivity and specificity of the FDG PET-CT examination. Electronically Signed: Slava Rodriguez, at 20:24 EDT ,
== END | disposition home or self-care (01) ==
LOC: ONC 11:16
PROVIDERS: PCP Preventive Medicine Occupational Medicine; Referring Provider Nurse Practitioner Acute Care; Visit Provider Nurse Practitioner Acute Care
DX: R91.8 Other nonspecific abnormal finding of lung field (principal)
CPT/HCPCS: 78815; A9552

== ENCOUNTER → 2023-01-23 | Outpatient (CLI) | payer MEDICARE, OTHER, SELFPAY ==
--- NOTE | 2023-01-23 13:30 | CT_ITS ---
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 A radiation dose optimization technique was used for this scan. IV Contrast dosage and agent: None. COMPARISON: October 31, 2022 FINDINGS: LUNGS, PLEURA AND LARGE AIRWAYS: There is right suprahilar interstitial thickening with groundglass opacity and a noncalcified nodular density measuring approximately 1.6 x 1.2 x 0.8 cm which may be consistent with bronchoalveolar cell carcinoma. Pleural-parenchymal scarring in the pulmonary apices without pleural effusion. No pneumothorax. THYROID: No thyroid lesions. HEART AND PERICARDIUM: Heart size is normal. No pericardial effusion. CORONARY ARTERIES: There is multivessel coronary artery disease VESSELS: Atherosclerotic changes of the aorta without evidence for aneurysm. MEDIASTINUM AND CANDICE: No mediastinal or hilar adenopathy. Esophagus is unremarkable. No hiatal hernia. UPPER ABDOMEN: No acute pathology. BONES: Dorsal spine demonstrates changes No suspicious lytic or blastic abnormality. The nodular opacity in the right upper lobe has increased slightly in size since previous study CT/Chest without Contrast IMPRESSION: ASHD. 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 [Recommend clinical correlation and follow-up PET scan if clinically warranted Electronically Signed: Jorge Cordoba MD at 18:00 EDT ,
== END | disposition home or self-care (01) ==
LOC: CT 13:30
PROVIDERS: PCP Preventive Medicine Occupational Medicine; Referring Provider Nurse Practitioner Acute Care; Visit Provider Nurse Practitioner Acute Care
DX: R91.8 Other nonspecific abnormal finding of lung field (principal)
CPT/HCPCS: 71250

== ENCOUNTER → 2023-02-20 | Outpatient (CLI) | payer MEDICARE, OTHER, SELFPAY ==
--- NOTE | 2023-02-21 05:36 | PFTCOMP ---
COMPLETE PULMONARY FUNCTION TEST INTERPRETATION Brief HPI: Patient is a 77-year-old female, currently under the care of myself, who presents to [facility] for complete pulmonary function tests secondary to diagnosis of preop clearance. Respiratory therapist reports good effort and reproducible results. Interpretation: Forced expiration spirometry shows a mild large airways obstructive ventilatory defect with an FEV1 of 88% predicted. There is a significant bronchodilator response in FVC and FEV1 by strict ATS criteria. Spirograms are of good quality and plateau slowly, indicating slowly emptying areas of the lungs. The respiratory flow volume loop shows decreased expiratory flow rates at all lung volumes consistent with airway obstruction. Lung volumes by body plethysmography show an elevated total lung capacity at 5.97 L, 123% predicted. FRC and RV are elevated out of proportion. Lung volume measurements are consistent with hyperinflation and air-trapping. Diffusion capacity by carbon monoxide is normal at 74% predicted. The airway resistance is elevated. Compared to previous pulmonary function tests from 07/12/2021, there is been worsening in air trapping, but improvement in DLCO. Impression: Partially reversible mild large airways obstructive ventilatory defect resulting in air trapping with hyperinflation, but some improvements compared to previous.
== END | disposition home or self-care (01) ==
LOC: PSN 12:47
PROVIDERS: PCP Preventive Medicine Occupational Medicine; Referring Provider Internal Medicine Critical Care Medicine; Visit Provider Internal Medicine Critical Care Medicine
DX: R91.8 Other nonspecific abnormal finding of lung field (principal); J44.9 Chronic obstructive pulmonary disease, unspecified
CPT/HCPCS: 94060; 94726; 94729

== ENCOUNTER 2023-07-10 20:50 | Emergency (ER) | payer MEDICARE, OTHER, SELFPAY ==
[2023-07-10 20:51] VITALS: BP 106/62; PULSE 56; RESP 16; TEMP 36.4; O2SAT 96
[2023-07-10 21:08] VITALS: O2SAT 97
--- NOTE | 2023-07-10 21:28 | ED.VIS.FALL ---
HPI HPI - Fall History of Present Illness Chief Complaint: Fall Informant: patient Occured/Mechanism Occurred: Today Mechanism/Context: Yes same level fall and Yes trip Pain/Injury Pain Location: upper extremity (Bilateral shoulders) Quality of Pain: Sharp, Aching, Burning and Throbbing Worsened by: Movement Relieved by: Rest Associated Symptoms Associated Symptoms: Negative for Parasthesias, Weakness, Loss of function, Inability to ambulate, Loss of consciousness or Amnesia Narrative Narrative: Patient presents after a fall that occurred today. Patient states she tripped over a curb and then slipped on gravel and sand. Patient states she fell and injured both shoulders. Patient describes her pain as sharp, aching, and burning. Patient states her pain is worse with any movement. Patient states it is better with rest. Patient denies any paresthesias or weakness. Patient denies any head injury or loss of consciousness. Patient is unsure of her last tetanus. [facility] Medical History Arthritis Atherosclerotic heart disease of [place] coronary artery without angina pectoris Back problem Bowel obstruction Carpal tunnel syndrome Cataracts, bilateral Chronic bronchitis Essential hypertension Fatigue GERD (gastroesophageal reflux disease) Hard of hearing History of myocardial infarction (02/18/07) Hormone deficiency Hypercholesterolemia Hyperlipidemia Hypertriglyceridemia Hypothyroidism IBS (irritable bowel syndrome) MVP (mitral valve prolapse) Non-rheumatic mitral regurgitation Obstructive sleep apnea Osteoarthritis Osteopenia Pneumonia Seasonal allergies UTI (urinary tract infection) Home Medications cholecalciferol (vitamin D3) 50 mcg (2,000 unit) capsule 2,000 unit PO DAILY 01/03/19 [History Last Taken Unknown] coenzyme Q10 100 mg capsule (Co Q-10) 200 mg PO DAILY Take with Rosuvastatin to prevent muscle aches 02/23/20 [History Last Taken Unknown] fluticasone propionate 50 mcg/actuation nasal spray,suspension 2 spray intranasal DAILY PRN 02/23/20 [History Last Taken Unknown] famotidine 20 mg tablet (Acid Public Health Program Manager (famotidine)) 20 mg PO DAILY 02/28/21 [History Last Taken Unknown] levothyroxine 50 mcg tablet 50 mcg PO DAILY #90 tabs 11/13/22 [Rx Last Taken Unknown] metoprolol tartrate 25 mg tablet 25 mg PO BID #180 tabs 11/13/22 [Rx Last Taken Unknown] rosuvastatin 5 mg tablet 5 mg PO DAILY #90 tabs 11/13/22 [Rx Last Taken Unknown] ascorbic acid (vitamin C) 1,000 mg tablet 1 g PO DAILY 12/25/22 [History Last Taken Unknown] aspirin 325 mg tablet,delayed release 325 mg PO DAILY 12/25/22 [History Last Taken Unknown] cyanocobalamin (vitamin B-12) 500 mcg tablet (Vitamin B-12) 2,500 mcg PO DAILY 12/25/22 [History Last Taken Unknown] gabapentin 100 mg capsule 100 mg PO DAILY 12/25/22 [History Last Taken Unknown] hydrocodone-acetaminophen 5-325mg 5mg-325mg 1 tab PO Q6H PRN PRN Pain 3 days #10 TABLETS 07/10/23 [Rx Last Taken Unknown] Allergy/AdvReac Type Severity Reaction Status Date / Time simvastatin AdvReac Intermediate Myalgias Verified 07/10/23 20:51 propoxyphene napsylate AdvReac Rash Verified 07/10/23 20:51 [facility] Family History Mother CAD (coronary artery disease) Hypertension Father CVA (cerebral vascular accident) Sister Cancer Brother Cancer Brother CAD (coronary artery disease) Brother CAD (coronary artery disease) Brother Cancer Surgical History history of anterior colporrhaphy of bladder/vagina History of appendectomy History of back surgery history of bladder sling History of knee replacement History of left heart catheterization (03/01/11) History of right oophorectomy (1965) History of thumb surgery History of total abdominal hysterectomy (1984) History of total knee replacement Hx of bilateral cataract extraction Stented coronary artery (02/19/07) surgery to release bowel obstruction Social History Smoking Status: Former smoker Tobacco: How many years used: 40 alcohol intake: never substance use type: does not use what type of physical activity do you participate in: none ROS ROS ED Constitutional Constitutional ED: Denies chills or fever(s) Eyes Eyes: Denies blurry vision or change in vision ENT ENT ED: Denies rhinorrhea or sore throat Cardiovascular Cardiovascular: Denies chest pain or palpitations Respiratory/Chest Respiratory/Chest: Denies cough or dyspnea Gastrointestinal Gastrointestinal: Denies nausea or vomiting Genitourinary Genitourinary ED: Denies dysuria or hematuria Musculoskeletal Musculoskeletal: Reports back pain; Denies neck pain Integumentary Denies abscess or rash Neurologic Neurologic: Denies headache(s) or weakness Allergic/Immunologic Allergic/Immunologic ED: Denies mouth swelling or urticaria EXAM Physical Exam Const Vital Signs: 07/10/23 20:51 07/10/23 21:08 Temperature 97.6 F L Temperature Source Temporal Pulse Rate 56 L Respiratory Rate 16 Respiratory Effort Normal Respiratory Depth Normal Respiratory Pattern Normal Blood Pressure 106/62 Blood Pressure Mean 76 Pulse Ox 96 97 Oxygen Delivery Method Room Air Positive well nourished and well developed General Appearance ED: well developed and NAD HEENT Reports normocephalic atraumatic Neck full ROM and supple Chest Wall inspection of chest normal and palpation of chest normal Resp normal respiratory effort and clear to auscultation bilaterally Cardio regular rate and regular rhythm GI non-tender and non-distended Palpation: soft Extremity Extremity Narrative: There is tenderness over the shoulders bilaterally. There is some edema noted. There is no deformity noted. Range of motion was limited in all motions of both shoulder secondary to pain. Strength is 5/5 bilaterally in the radial, median, and ulnar areas. Sensation was intact to light touch in the radial, median, ulnar, and axillary areas. Radial pulses are equal bilaterally. Neuro oriented x3, CN's II-XII intact bilaterally, moves all extremities, no focal motor deficits and no sensory deficits noted [place] Coma Scale: document GCS findings Spontaneous Obeys Commands Oriented 15 Sensorium / Orientation: alert Motor Exam: strength 5/5 throughout Psych mental status grossly normal and thought process normal MDM MDM MDM Narrative Medical decision making narrative: Differential diagnosis includes fracture, dislocation, contusion, and sprain. X-rays of the bilateral shoulders will be obtained to assess for fracture and dislocation. Radiography Diagnostic Testing: Clinical Impression(s) from Imaging Studies Shoulder X-Ray 07/10/23 21:30 IMPRESSION: 1. Moderately subluxed left humeral head with Hill-Sachs type fracture fragment at the superior-lateral head consistent with prior anterior-inferior shoulder dislocation. 2. New from June 13, 2021 but it appears at least subacute considering corticated margin of the fracture fragment. 3. Angulation at the subcapital neck without confirmed fracture. Electronically Signed: Vero Teran MD at 23:03 EST , Shoulder X-Ray 07/10/23 21:30 IMPRESSION: 1. Moderate roughly 2.4 cm inferior subluxation of the right humeral head with at least subacute Hill-Sachs type fracture fragment from the humeral head consistent with prior anterior-inferior shoulder dislocation. 2. Periosteal reaction around the head. 3. Mild angulation at the head-neck junction, difficult to exclude subtle impacted neck fracture. Consider CT if it is thought to be indicated. 4. Findings are new from 2020 but suspected to be subacute. 5. Defect in right fourth and fifth ribs near the shoulder with adjacent surgical clips and presumed right upper lobe surgery since January 23, 2023. A right jugular [id number] is also newly present. Electronically Signed: Vero Teran MD at 22:57 EST , X-rays of the right shoulder were obtained. There are 2 views. On my independent interpretation, there is a subluxed humeral head with a subacute Hill-Sachs type fracture. There is a possible impacted neck fracture. Radiologist also interpreted the x-rays and agrees. X-rays of the left shoulder were obtained. There are 2 views. On my independent interpretation, there is a subluxed left humeral head with Hill-Sachs fracture fragment that appears to be at least subacute. Radiologist also interpreted the x-rays and agrees. Treatment and Re-Evaluation Narrative: Patient was given injection of morphine here. Patient was advised of her findings. Patient has seen Dr. Esparza in the past. Patient was placed in a sling and swath in her left arm. The swath will also wrap around her right humerus. Patient was given a prescription for [place]. Patient was instructed to use ice to the area. Patient was instructed to follow-up with Dr. Esparza in 5 to 7 days. Patient and spouse understood and were agreeable with the plan. All questions were answered. Discharge Plan Triage Chief Complaint: Fall ED Provider: Cristofer Rehman Dx/Rx/DC Orders Clinical Impression: Hill-Sachs fracture of left humerus, Hill-Sachs fracture of right humerus, Shoulder subluxation, left, Shoulder subluxation, right, Fall Instructions: ED Fracture, Shoulder Prescriptions: New hydrocodone-acetaminophen [hydrocodone-acetaminophen] 5-325 mg tablet 1 tab PO Q6H PRN PRN (Reason: Pain) 3 Days Qty: 10 0RF No Action cholecalciferol (vitamin D3) 2,000 unit capsule 2,000 unit PO DAILY fluticasone propionate 50 mcg/actuation spray,suspension 2 spray INTRANASAL DAILY PRN cyanocobalamin (vitamin B-12) [Vitamin B-12] 500 mcg tablet 2,500 mcg PO DAILY coenzyme Q10 [Co Q-10] 100 mg capsule 200 mg PO DAILY famotidine [Acid Public Health Program Manager (famotidine)] 20 mg tablet 20 mg PO DAILY ascorbic acid (vitamin C) 1,000 mg tablet 1 g PO DAILY aspirin 325 mg tablet,delayed release (DR/EC) 325 mg PO DAILY gabapentin 100 mg capsule 100 mg PO DAILY metoprolol tartrate 25 mg tablet 25 mg PO BID Qty: 180 3RF rosuvastatin 5 mg tablet 5 mg PO DAILY Qty: 90 3RF levothyroxine 50 mcg tablet 50 mcg PO DAILY Qty: 90 1RF Primary Care Provider: Pancho Garcia Referrals: Camacho Esparza DO [Med Staff - Active Staff] - 3-5 Days Pancho Garcia DO [Primary Care Provider] - Disposition Disposition: Home, Self Care
[2023-07-10] MEDS: Morphine 4 MG/ML Syringe IM (21:30)
--- NOTE | 2023-07-10 21:30 | RAD_ITS ---
EXAM: XR RIGHT SHOULDER COMPLETE, 2 OR MORE VIEWS CLINICAL INDICATION: INJURY TECHNIQUE: Two or more views of the right shoulder. COMPARISON: Chest radiograph June 13, 2021. Prior chest CTs did not include the shoulders. FINDINGS: BONES/JOINTS: There is inferior subluxation of the right humeral head and Hill-Sachs type fracture fragment of roughly 3.4 cm x 1.2 cm at the superior lateral margin of the humeral head. Mildly sclerotic fracture margins suggest this is chronic, it was not present on prior radiograph. Mild periosteal reaction medial and lateral to the humeral head, also new, and angulation at the head-neck junction without visible full-thickness neck fracture. Preservation of the joint space. SOFT TISSUES: Unremarkable. No soft tissue swelling or gas. No radiopaque foreign body. RAD/Shoulder min 2 Views IMPRESSION: 1. Moderate roughly 2.4 cm inferior subluxation of the right humeral head with at least subacute Hill-Sachs type fracture fragment from the humeral head consistent with prior anterior-inferior shoulder dislocation. 2. Periosteal reaction around the head. 3. Mild angulation at the head-neck junction, difficult to exclude subtle impacted neck fracture. Consider CT if it is thought to be indicated. 4. Findings are new from 2020 but suspected to be subacute. 5. Defect in right fourth and fifth ribs near the shoulder with adjacent surgical clips and presumed right upper lobe surgery since January 23, 2023. A right jugular [id number] is also newly present. Electronically Signed: Vero Teran MD at 22:57 EST ,
--- NOTE | 2023-07-10 21:30 | RAD_ITS ---
EXAM: XR LEFT SHOULDER COMPLETE, 2 OR MORE VIEWS CLINICAL INDICATION: Injury/Pain TECHNIQUE: Frontal and scapular Y view. COMPARISON: Chest radiograph June 13, 2021. The shoulders are not fully included on prior chest CTs. FINDINGS: BONES/JOINTS: Moderate subluxation of humeral head, estimated to be roughly 2.7 cm. Hill-Sachs type fracture fragment at the superolateral humeral head, measuring roughly 3.7 cm x 1.5 cm with at least mildly corticated margins, at least subacute. Stable chronic ossific density projecting inferiorly to the joint. Question of impacted head-neck but no convincing fracture, this may be positional. SOFT TISSUES: Unremarkable. No soft tissue swelling or gas. No radiopaque foreign body. RAD/Shoulder min 2 Views IMPRESSION: 1. Moderately subluxed left humeral head with Hill-Sachs type fracture fragment at the superior-lateral head consistent with prior anterior-inferior shoulder dislocation. 2. New from June 13, 2021 but it appears at least subacute considering corticated margin of the fracture fragment. 3. Angulation at the subcapital neck without confirmed fracture. Electronically Signed: Vero Teran MD at 23:03 EST ,
[2023-07-10 23:38] VITALS: BMI 29.8
[2023-07-10] MEDS: HYDROcodone Bitartrate/Apap 5/325 Tablet PO (23:52)
== END 2023-07-11 00:26 | disposition home or self-care (01) ==
PROVIDERS: Emergency Provider Emergency Medicine; PCP Preventive Medicine Occupational Medicine; Visit Provider Emergency Medicine
DX: S42.201A Unspecified fracture of upper end of right humerus, initial encounter for closed fracture (principal); I25.10 Atherosclerotic heart disease of native coronary artery without angina pectoris; E78.00 Pure hypercholesterolemia, unspecified; Z87.891 Personal history of nicotine dependence; S42.202A Unspecified fracture of upper end of left humerus, initial encounter for closed fracture; I10 Essential (primary) hypertension; S43.002A Unspecified subluxation of left shoulder joint, initial encounter; S43.001A Unspecified subluxation of right shoulder joint, initial encounter; W18.30XA Fall on same level, unspecified, initial encounter
CPT/HCPCS: 73030; 96372; 99283

== ENCOUNTER 2023-07-12 18:39 | Emergency (ER) | payer MEDICARE, OTHER, SELFPAY ==
[2023-07-12 18:39] VITALS: TEMP 36.1; BMI 29.7
[2023-07-12 18:48] VITALS: BP 108/49; BP 113/50; BP 157/31; BP 166/49; BP 186/23; BP 215/72; BP 229/105; BP 244/208; BP 51/17; BP 63/45; BP 97/67; PULSE 108; PULSE 87; PULSE 89; RESP 30; O2SAT 74; O2SAT 79; O2SAT 82; O2SAT 83; O2SAT 87; O2SAT 94
--- NOTE | 2023-07-12 18:56 | EDS_ITS ---
HPI History of Present Illness Chief Complaint: CPR Informant: spouse/S.O. Narrative Narrative: Patient presents as a full arrest. History is still developing due to the acuity of the situation. Evidently the patient was being brought to the ER by her . She went unresponsive about 4 minutes prior to pulling into the hospital. Staff got her out of the car and initiated CPR and brought her back. This patient evidently had a fall yesterday was evaluated found to have shoulder fractures but otherwise was doing well. This had been a mechanical trip and fall. There was no indication she hurt anything other than the shoulders. I was told that she had an outpatient MRI today. When I look at the visits it looks like this may have been actually CTs of the shoulder. It does not look like IV contrast was given. Patient was complaining of dyspnea all day. She does have a history of prior IL and stents. Patient also has adenocarcinoma of the right upper lung. She has had surgery for this back in March. She has been getting chemotherapy. She had her third treatment on Sunday. No radiation. Review of systems is limited as I cannot asked the patient. But there has been no apparent fever. There is been some dyspnea for about a day. No notable cough. There may have been some tightness of the chest but I do not get a report of definite chest pain. [facility] Medical History Arthritis Atherosclerotic heart disease of [place] coronary artery without angina pectoris Back problem Bowel obstruction Carpal tunnel syndrome Cataracts, bilateral Chronic bronchitis Essential hypertension Fatigue GERD (gastroesophageal reflux disease) Hard of hearing History of myocardial infarction (02/18/07) Hormone deficiency Hypercholesterolemia Hyperlipidemia Hypertriglyceridemia Hypothyroidism IBS (irritable bowel syndrome) MVP (mitral valve prolapse) Non-rheumatic mitral regurgitation Obstructive sleep apnea Osteoarthritis Osteopenia Pneumonia Seasonal allergies UTI (urinary tract infection) Home Medications cholecalciferol (vitamin D3) 50 mcg (2,000 unit) capsule 2,000 unit PO DAILY 01/03/19 [History Last Taken Unknown] coenzyme Q10 100 mg capsule (Co Q-10) 200 mg PO DAILY Take with Rosuvastatin to prevent muscle aches 02/23/20 [History Last Taken Unknown] fluticasone propionate 50 mcg/actuation nasal spray,suspension 2 spray intranasal DAILY PRN 02/23/20 [History Last Taken Unknown] famotidine 20 mg tablet (Acid [employer] (famotidine)) 20 mg PO DAILY 02/28/21 [History Last Taken Unknown] levothyroxine 50 mcg tablet 50 mcg PO DAILY #90 tabs 11/13/22 [Rx Last Taken Unknown] metoprolol tartrate 25 mg tablet 25 mg PO BID #180 tabs 11/13/22 [Rx Last Taken Unknown] rosuvastatin 5 mg tablet 5 mg PO DAILY #90 tabs 11/13/22 [Rx Last Taken Unknown] ascorbic acid (vitamin C) 1,000 mg tablet 1 g PO DAILY 12/25/22 [History Last Taken Unknown] aspirin 325 mg tablet,delayed release 325 mg PO DAILY 12/25/22 [History Last Taken Unknown] cyanocobalamin (vitamin B-12) 500 mcg tablet (Vitamin B-12) 2,500 mcg PO DAILY 12/25/22 [History Last Taken Unknown] gabapentin 100 mg capsule 100 mg PO DAILY 12/25/22 [History Last Taken Unknown] hydrocodone-acetaminophen 5-325mg 5mg-325mg 1 tab PO Q6H PRN PRN Pain 3 days #10 TABLETS 07/10/23 [Rx Last Taken Unknown] Allergy/AdvReac Type Severity Reaction Status Date / Time simvastatin AdvReac Intermediate Myalgias Verified 07/10/23 20:51 propoxyphene napsylate AdvReac Rash Verified 07/10/23 20:51 [From [facility] 100] Family History Mother CAD (coronary artery disease) Hypertension Father CVA (cerebral vascular accident) Sister Cancer Brother Cancer Brother CAD (coronary artery disease) Brother CAD (coronary artery disease) Brother Cancer Surgical History history of anterior colporrhaphy of bladder/vagina History of appendectomy History of back surgery history of bladder sling History of knee replacement History of left heart catheterization (03/01/11) History of right oophorectomy (1965) History of thumb surgery History of total abdominal hysterectomy (1984) History of total knee replacement Hx of bilateral cataract extraction Stented coronary artery (02/19/07) surgery to release bowel obstruction Social History Smoking Status: Former smoker Tobacco: How many years used: 40 alcohol intake: never substance use type: does not use what type of physical activity do you participate in: none ROS ROS ED ROS Narrative Unable to directly obtain a significant review of systems due to the patient receiving CPR at point of arrival of ED. Respiratory/Chest Respiratory/Chest: Reports dyspnea EXAM Physical Exam Narrative Exam Narrative: General: Patient has CPR as she is going by on the bed. HEENT: No sign of trauma. No bleeding seen. Eyes: Pupils are dilated at this time. Neck shows no obvious JVD. Lungs are clear with Ambu allowing for the sounds associated with the procedure. She does have a med port in the upper chest on the right. Heart shows no spontaneous heartbeat and no pulse palpable unless there is CPR given. Abdomen is not distended. Extremities show some bruising and contusion starting to be visible up near the right shoulders but no obvious obvious deformity. I do not see any other notable bruises. Skin does look a little bit pale. Not diaphoretic. No rashes. Neurologic: No response to pain Const Vital Signs: 07/12/23 18:48 07/12/23 19:31 07/12/23 18:39 Temperature 97 F L Temperature Source Temporal Pulse Rate [12] 87 Pulse Rate [5] 89 Pulse Rate [9] 108 H Respiratory Rate [5] 30 H Blood Pressure 166/49 H Blood Pressure [12] 113/50 L Blood Pressure [14] 51/17 L Blood Pressure [16] 229/105 H Blood Pressure [19] 244/208 H Blood Pressure [1] 97/67 Blood Pressure [20] 215/72 H Blood Pressure [2] 166/49 H Blood Pressure [4] 186/23 H Blood Pressure [5] 63/45 L Blood Pressure [6] 157/31 H Blood Pressure [7] 157/31 H Blood Pressure [9] 108/49 L Oxygen Delivery Method Room Air MDM MDM MDM Narrative Medical decision making narrative: Please see nursing flow sheets also. I was coming out of another room when this patient rolled by with CPR in progress. We followed in the room got what history I could. Then the came and I got a little more history. CPR was continued. IV was placed. During her stay she has gotten multiple doses of epinephrine. We initially did get a pulse back for a while. This allowed me to leave the room and at least enter some initial orders. She then bradycardia down and CPR was started again. We tried epinephrine and because she had a short course of slowing heart rate we gave atropine. We did get back pulse for period of time and a reasonable blood pressure. She was being given IV fluids. We are ordering further studies because we are concerned about possible pulmonary embolus. She has a history of lung cancer being treated/active with dyspnea all day. Her EKG did show S1. It looks like there is T wave inversion in 3 and possible Q wave in 3. Mild only other EKG I have is from 2013 for comparison but this is a reading and not an actual visual EKG. As I was finishing orders, we went back in and did CPR again. We did bedside echo. There is no palpable pulse but there was heart rate on the monitor. Echo showed what appeared to be right ventricular contraction but only small amount. No significant LV contraction. She did not appear to have dilated ventricle. At this point we discussed consideration of tenecteplase. for possible attempted rescue treatment of pulmonary embolus. I explained separately to and son who are in the room risks and benefits of this. Patient does have known cancer but has no known mets to the spine or brain. She did have the fall yesterday and is at increased risk of bleeding. But all indication is that she only hurt her shoulders. I explained that the chance of success with this medicine is low but both her and son separately decided to go with this. I would talk with both of them in the room. They would stay in different spots but they each wanted me to talk to the other so this conversation was held [id number]. We did continue to CPR. We attempted the kinase therapy. We were not getting any benefit. At this point we also got blood work back that showed very low hemoglobin, lites elevated liver function test, creatinine, elevated troponin, elevated lactic acid. With at least 4 minutes without CPR initially, prolonged CPR here and no response we did all agree at that point to call the resuscitation. Patient CBC shows severe anemia with hemoglobin of 6.7. Patient's electrolytes showed slightly low potassium and elevated BUN and creatinine. High anion gap and low back rated glucose was a bit high at 260. Patient's lactic acid was high at 14.0. Patient's troponin was elevated at 691. Patient's liver function test showed elevated AST and T's. Patient's lipase was normal. Patient's urine was overall clear. However, her urine did start to get bloody even before tenecteplase was given. We do not know for certain the cause of her symptoms. I think it is less likely from the fall as she was not having dyspnea or any sign of chest injury prior. This certainly could be cardiac ischemia or sudden cardiac arrest. But her EKG was not indicating an acute ST elevation [place]. Very likely this could be pulmonary embolus. She did have dyspnea all day, history of cancer, high heart rate, full arrest, and what appears to be an S1Q3T3 on her EKG. Lab Data Attestation: I reviewed the patient's lab results. Labs: Laboratory Results - last 24 hr 07/12/23 07/12/23 07/12/23 18:42 18:50 19:00 WBC 8.7 RBC 2.23 L Hgb 6.7 L Hct 23.0 L MCV 103.1 H MCH 30.0 MCHC 29.1 L RDW Std Deviation 57.7 H RDW Coeff of Sherry 15.4 H Plt Count 143 L MPV 12.3 H Immature Gran % (Auto) 1.200 H Neut % (Auto) 22.5 L Lymph % (Auto) 70.1 H Bacon % (Auto) 5.8 Eos % (Auto) 0.2 Baso % (Auto) 0.2 Absolute Neuts (auto) 2.0 Absolute Lymphs (auto) 6.09 H Nucleated RBC % 0.3 Differential Comment SEE COMMENT Diff Path Review May foll Platelet Estimate ADEQUATE RBC Morphology N CHROM Anisocytosis 1+ Macrocytosis 1+ PT 25.3 H INR 2.3 APTT 59.8 H Sodium 141 Potassium 3.3 L Chloride 111 H Carbon Dioxide 13.0 L Anion Gap 17 H BUN 24 H Creatinine 1.87 H Estim Creat Clear Calc 21.95 Est GFR (MDRD) Af Amer 33 L Est GFR (MDRD) Non-Af 28 L BUN/Creatinine Ratio 12.8 Glucose 260 H Lactic Acid 14.0 H* Calcium 6.2 L* Total Bilirubin 0.70 AST 689 H ALT 698 H Alkaline Phosphatase 55 Troponin I High Sens 691 H* B-Natriuretic Peptide 82.4 Total Protein 5.0 L Albumin 2.2 L Globulin 2.8 Albumin/Globulin Ratio 0.8 L Lipase 22 Urine Color Yellow Urine Clarity Clear Urine pH 6.5 Ur Specific Bland 1.015 Urine Protein 15 H Urine Glucose (UA) Normal Urine Ketones Negative Urine Occult Blood Negative Urine Nitrite Negative Urine Bilirubin Negative Urine Urobilinogen Normal Ur Leukocyte Esterase Negative Urine RBC 0 SEEN Urine WBC 0 SEEN Ur Squamous Epith Cells 0 SEEN Urine Bacteria 0 SEEN Urine Mucus 0 SEEN EKG Initial EKG: Comments: My independent interpretation of the EKG done in the room when it was done shows sinus tachycardia at 105. No ventricular ectopy. Right bundle branch block but no acute sign of ST elevation. There is baseline variation especially in the leads I, II and III. But there does appear to be an S1Q3T3. I have no visible old EKG available to compare. Discharge Plan Triage Chief Complaint: CPR ED Provider: Aki Stafford Dx/Rx/DC Orders Clinical Impression: Anemia, Cardiopulmonary arrest, History of fall, History of adenocarcinoma of lung Prescriptions: No Action cholecalciferol (vitamin D3) 2,000 unit capsule 2,000 unit PO DAILY fluticasone propionate 50 mcg/actuation spray,suspension 2 spray INTRANASAL DAILY PRN cyanocobalamin (vitamin B-12) [Vitamin B-12] 500 mcg tablet 2,500 mcg PO DAILY coenzyme Q10 [Co Q-10] 100 mg capsule 200 mg PO DAILY famotidine [Acid [employer] (famotidine)] 20 mg tablet 20 mg PO DAILY ascorbic acid (vitamin C) 1,000 mg tablet 1 g PO DAILY aspirin 325 mg tablet,delayed release (DR/EC) 325 mg PO DAILY gabapentin 100 mg capsule 100 mg PO DAILY hydrocodone-acetaminophen [hydrocodone-acetaminophen] 5-325 mg tablet 1 tab PO Q6H PRN PRN (Reason: Pain) 3 Days Qty: 10 0RF metoprolol tartrate 25 mg tablet 25 mg PO BID Qty: 180 3RF rosuvastatin 5 mg tablet 5 mg PO DAILY Qty: 90 3RF levothyroxine 50 mcg tablet 50 mcg PO DAILY Qty: 90 1RF Primary Care Provider: Pancho Garcia Referrals: Pancho Garcia DO [Primary Care Provider] - Disposition Disposition:
[2023-07-12 19:07] LABS: Bacteria 0 SEEN /hpf (None Seen); Mucous, Urine 0 SEEN /hpf (<or=2+); Red Blood Cells-Urine 0 SEEN /hpf (0-5); Squamous Epithelial Cells - UA 0 SEEN /hpf (5-10); White Blood Cells 0 SEEN /hpf (0-5)
[2023-07-12 19:09] LABS: Absolute Lymphocyte Count 6.09 X10^3/uL (0.83-4.51); Basophil# 0.02 X10^3/uL; Basophil% 0.2 % (0-1); Eosinophil# 0.02 X10^3/uL; Eosinophils% 0.2 % (0-5); Lymphocyte # 6.09 X10^3/ul (0.83-4.51); Lymphocyte % 70.1 % (19-41); Mean Corp Hgb Conc 29.1 g/dL (32-36); Mean Corpuscular Volume 103.1 fL (81-99); Mean Platelet Vol. 12.3 fl (6.2-12.0); Monocyte% 5.8 % (0-10); NRBC Flagged by Analyzer 0.3 % (0-5); Neutrophil # 1.96 X10^3/uL (2.7-7.7); Neutrophil % 22.5 % (47-70); POSITIVE DIFFERENTIAL YES; POSITIVE MORPHOLOGY YES; Platelet Count 143 K/mm3 (150-450); RBC Distribution Width CV 15.4 % (11.6-14.6); RBC Distribution Width SD 57.7 fl (35.1-43.9); Red Blood Count 2.23 M/mm3 (4.2-5.4); White Blood Count 8.7 K/mm3 (4.4-11.0)
[2023-07-12 19:10] LABS: Color, Urine Yellow (Yellow); Glucose, Dipstick Normal (Normal); Ketone-Dipstick Negative (Negative); Leukocyte Esterase-Dipstick Negative /ul (Negative); Nitrite-Dipstick Negative (Negative); Occult Blood-Urine Negative /ul (Negative); Protein-Dipstick 15 mg/dl (Negative); Specific Gravity, Urine 1.015 (1.002-1.030); Urine Bilirubin Dipstick Negative (Negative); Urine Clarity Clear (Clear); Urine Urobilinogen Normal (Normal); Urine pH 6.5 (5.0 - 8.0)
[2023-07-12 19:14] LABS: International Normalized Ratio 2.3; Prothrombin Time (Protime)PT. 25.3 SECONDS (11.7-14.9)
[2023-07-12 19:15] LABS: Partial Thromboplast Time 59.8 Seconds (24.1-36.2)
[2023-07-12 19:31] VITALS: BP 166/49
[2023-07-12 19:31] LABS: Differential Indicated SCAN CRITERIA MET
[2023-07-12 19:33] LABS: Hemoglobin 6.7 g/dL (12.0-15.0); Platelet Estimate ADEQUATE (ADEQ)
[2023-07-12 19:34] LABS: ALB/GLOB Ratio 0.8 RATIO (0.9-2.4); AST(SGOT) 689 U/L (15-37); Alanine Aminotransfer ALT/SGPT 698 U/L (13-56); Albumin, Serum 2.2 g/dL (3.2-5.0); Alkaline Phosphatase 55 U/L (45-117); Anion Gap 17 (5-15); Anisocytosis 1+; BUN 24 mg/dL (7-18); BUN/Creat Ratio 12.8 RATIO (10-20); Calcium,Total 6.2 mg/dL (8.5-10.1); Chloride 111 mmol/L (98-107); Creatinine, Serum 1.87 mg/dL (0.55-1.02); EST Glomerular Filtration Rate 28 mL/min (>60); Est Glom Filt Rate - Afr Amer 33 mL/min (>60); Estimated Creatinine Clearance 21.95 ml/min; Globulin 2.8 g/dL (2.2-4.2); Glucose 260 mg/dL (74-106); Lipase 22 U/L (13-75); Macrocytosis 1+; Potassium 3.3 mmol/L (3.5-5.1); Red Cell Morphology N CHROM NORMAL (NORM C&C); Sodium Level 141 mmol/L (136-145); Troponin-I HS (w/2H Reflex) 691 pg/mL (3.0-54.0)
[2023-07-12 19:42] LABS: BNP,B-Type NATRIURETIC PEPTIDE 82.4 pg/mL (0-100)
[2023-07-12 21:05] LABS: Reflex Troponin-HS? (from REC) Y
--- NOTE | 2023-07-12 21:12 | ED.RN ---
2000 ml fluids given IV
[2023-07-12 23:05] LABS: Reflex Lactate? Y
[2023-07-13 13:16] LABS: Pathologist Review Reviewed
== END 2023-07-12 23:07 ==
PROVIDERS: Emergency Provider Emergency Medicine; PCP Preventive Medicine Occupational Medicine; Visit Provider Emergency Medicine
DX: I46.9 Cardiac arrest, cause unspecified (principal); C34.11 Malignant neoplasm of upper lobe, right bronchus or lung; D64.9 Anemia, unspecified; Z87.891 Personal history of nicotine dependence; I25.10 Atherosclerotic heart disease of native coronary artery without angina pectoris; Z95.5 Presence of coronary angioplasty implant and graft; I10 Essential (primary) hypertension; E78.00 Pure hypercholesterolemia, unspecified; I25.2 Old myocardial infarction; R06.00 Dyspnea, unspecified; R74.02 Elevation of levels of lactic acid dehydrogenase [LDH]; Z91.81 History of falling
CPT/HCPCS: 31500; 80053; 81001; 83605; 83690; 83880; 84484; 85025; 85610; 85730; 92950; 93005; 96374; 99283; J3101; J7030; J7050; A4216

== ENCOUNTER → 2023-07-12 | Outpatient (CLI) | payer MEDICARE, OTHER, SELFPAY ==
--- NOTE | 2023-07-12 08:58 | CT_ITS ---
STUDY: CT RIGHT SHOULDER REASON FOR EXAM: Female, 77 years old. Trauma. RADIATION DOSAGE (If Supplied By Facility): CTDIvol = ( 23.50 ) mGy, DLP = ( 554.83 ) mGycm TECHNIQUE: The patient was scanned in a multi detector CT scanner. High resolution transaxial imaging was performed without the administration of intravenous contrast material. Sagittal and coronal images were reconstructed. Individualized dose optimization techniques were used for this CT. COMPARISON: Right shoulder radiographs dated 07/10/2023. FINDINGS: There is a comminuted fracture of the right humeral neck and greater tuberosity with up to 2 cm displacement. There is inferior subluxation of the humeral head with respect to the glenoid. There is a 6 mm calcified loose body or bone fragment adjacent to the superior glenoid (axial series 4 image 44; coronal series 604 image 45). There is an 8 mm calcified loose body in the subscapularis recess (axial series 4 image 55). Normal glenoid neck and visualized scapula. Normal coracoid process. Normal visualized lateral clavicle. There is mild hypertrophic acromioclavicular arthrosis. There is a Type II morphology (curved), with a neutral orientation. Normal visualized muscles and soft tissue structures. CT/Extremity Upper without Contra IMPRESSION: Comminuted fracture of the right humeral neck and greater tuberosity with up to 2 cm displacement. Inferior subluxation of the humeral head. 6 mm calcified loose body or bone fragment adjacent to the superior glenoid. 8 mm calcified loose body in the subscapularis recess. Electronically Signed: Saul Horner MD at 11:08 EST ,
--- NOTE | 2023-07-12 08:58 | CT_ITS ---
STUDY: CT LEFT SHOULDER REASON FOR EXAM: Female, 77 years old. Trauma. RADIATION DOSAGE (If Supplied By Facility): CTDIvol = ( 23.50 ) mGy, DLP = ( 557.77 ) mGycm TECHNIQUE: The patient was scanned in a multi detector CT scanner. High resolution transaxial imaging was performed without the administration of intravenous contrast material. Sagittal and coronal images were reconstructed. Individualized dose optimization techniques were used for this CT. COMPARISON: Left shoulder radiographs dated 07/10/2023. FINDINGS: There is a comminuted fracture of the left humeral neck and greater tuberosity with up to 2 cm displacement. There is inferior subluxation of the humeral head with respect to the glenoid. There is a cluster of calcified loose bodies or bone fragments adjacent to the posterior-superior glenoid, measuring up to 9 mm in diameter (axial series 2 images 48-61; coronal series 601 images 31-35). There is a 1.4 cm calcified loose body located posterior to the left humeral neck (axial series 2 image 95). There are multiple small calcified/ossified loose bodies in the subscapularis recess, measuring up to 1.1 cm in diameter (axial series 2 images 61-70). Normal glenoid neck and visualized scapula. Normal coracoid process. Normal visualized lateral clavicle. There is mild hypertrophic acromioclavicular arthrosis. There is a Type II morphology (curved), with a neutral orientation. Normal visualized muscles and soft tissue structures. CT/Extremity Upper without Contra IMPRESSION: Comminuted fracture of the right humeral neck and greater tuberosity with up to 2 cm displacement. Inferior subluxation of the humeral head. Cluster of calcified loose bodies or bone fragments adjacent to the posterior-superior glenoid, measuring up to 9 mm in diameter. 1.4 cm calcified loose body located posterior to the left humeral neck. Multiple small calcified/ossified loose bodies in the subscapularis recess, measuring up to 1.1 cm in diameter. Electronically Signed: Saul Horner MD at 11:29 EST ,
== END | disposition home or self-care (01) ==
LOC: CT 08:57
PROVIDERS: PCP Preventive Medicine Occupational Medicine; Referring Provider Orthopaedic Surgery; Visit Provider Orthopaedic Surgery
DX: S42.222A 2-part displaced fracture of surgical neck of left humerus, initial encounter for closed fracture (principal); X58.XXXA Exposure to other specified factors, initial encounter; I10 Essential (primary) hypertension
CPT/HCPCS: 73200